=== PATIENT | male | born 1965 | race Caucasian/White ===

== ENCOUNTER 2019-07-20 11:48 | Emergency (ER) | payer MEDICARE, OTHER ==
[~2019-07-20] VITALS: Ht 177.8 cm; Wt 90.7 kg
[2019-07-20 12:00] VITALS: BP 137/85
[2019-07-20] MEDS ORDERED: RISPERIDONE2 MG ORAL (12:04)
[2019-07-20] MEDS ORDERED: PHENYTOIN SODI200 MG PO (12:04)
[2019-07-20] MEDS ORDERED: DIVALPROEX SOD500 MG PO (12:04)
[2019-07-20] MEDS ORDERED: VIMPAT200 MG PO (12:04)
[2019-07-20] MEDS ORDERED: BENAZEPRIL HCL10 MG ORAL (12:04)
--- NOTE | 2019-07-20 12:33 | Emergency Room Report ---
History of Present Illness General Chief Complaint: Seizure Source: Patient, Medical Record Present Illness HPI Disclaimer: Please note that this report is being documented using DRAGON technology. This can lead to erroneous entry secondary to incorrect interpretation by the dictating instrument. HPI: 54-year-old male with a history of epilepsy on Dilantin, developmental delay, cerebral palsy presents for evaluation of head injury after a seizure. The patient presents from his snf facility where he had a witnessed generalized tonic-clonic seizure lasting approximately 2 minutes and aborting spontaneously. He fell backwards and struck his head with a laceration over the occiput. The patient is returned to his neurologic baseline and has no complaints at this time. He denies headache, neck or back pain, changes in his vision, pain in his chest, palpitations, abdominal pain, vomiting or any other symptoms at this time. Does not appear that he has missed any medication doses according to his logbooks. PMH: Epilepsy, develop mental delay, cerebral palsy PSH: Cranial surgeries, unspecified Allergies: None reported Social Hx: None reported Allergies: Coded Allergies: No Known Allergies (Unverified , 07/20/19) Nursing Documentation-PMH Past Medical History: No History, Except For Hx Seizures: Yes - INTELLECTUAL DISABILITY, CEREBRAL PALSY, AUTISM Review of Systems All Other Systems: negative except mentioned in HPI Physical Exam Vital Signs Date Time Temp Pulse Resp B/P (MAP) Pulse Ox O2 Delivery O2 Flow Rate FiO2 07/20/19 11:53 98.1 97 18 150/95 (113) 95 Room Air General: Awake and alert, no acute distress HEENT: There is a 5 cm linear vertically oriented superficial laceration over the occiput. Hemostatic. No facial abrasions, lacerations or hematomas. No tenderness or soft tissue swelling over the facial bones. EOMI. There is a right-sided disconjugate gaze. PERRLA. No septal hematoma. No oral lacerations. Dentition is intact. No malocclusion Neck: Supple, trachea midline. Arrives without cervical collar Chest Wall: No tenderness, no deformity, no crepitus CV: RRR. S1 and S2 normal. No murmur appreciated Resp: Normal work of breathing. No cough, wheezing or crackles appreciated Abd: Soft, nontender, nondistended Skin: 5 cm superficial laceration over the occiput. Hemostatic. MSK: Normal tone and bulk. No obvious deformity. Moving all extremities. Ambulating without difficulty. Neuro: Awake and alert. Mentating appropriately. Sensation is intact to light touch over the dermatomes of the upper and lower extremities Spine: There is no tenderness, step-off or deformity in the cervical, thoracic or lumbosacral spine. Procedures Laceration/Wound Repair Laceration/Wound Repair : Consent: Verbal Wound Location: head Wound's Depth, Shape: superficial Wound Explored: clean Anesthesia: Lidocaine w/ Epi Volume Anesthetic (ccs): 10 Wound Debrided: None Wound Repaired With: nat Number of Sutures: 8 Sterile Dressing Applied?: Yes Medical Decision Making Diagnostic Impression: Primary Impression: Subtherapeutic phenytoin level Additional Impressions: Seizure Scalp laceration ER Course 54-year-old male presents for evaluation after head trauma secondary to a generalized tonic-clonic seizure witnessed by staff prior to arrival. He is returned to his neurologic baseline. Will check phenytoin levels, basic labs and CT scan of the head. The laceration will require closure with nat. Will update Tdap. Laboratory Tests Test 07/20/19 12:30 White Blood Count 7.2 K/UL (4.8-10.8) Red Blood Count 5.00 M/UL (4.70-6.10) Hemoglobin 15.3 G/DL (14.2-18.0) Hematocrit 45.2 % (42.0-52.0) Mean Corpuscular Volume 90 FL (80-99) Mean Corpuscular Hemoglobin 30.6 PG (27.0-31.0) Mean Corpuscular Hemoglobin Concent 33.9 G/DL (32.0-36.0) Red Cell Distribution Width 10.6 % (11.6-14.8) L Platelet Count 267 K/UL (150-450) Mean Platelet Volume 7.0 FL (6.5-10.1) Neutrophils (%) (Auto) 73.9 % (45.0-75.0) Lymphocytes (%) (Auto) 16.1 % (20.0-45.0) L Monocytes (%) (Auto) 8.3 % (1.0-10.0) Eosinophils (%) (Auto) 0.8 % (0.0-3.0) Basophils (%) (Auto) 0.9 % (0.0-2.0) Urine Color Pale yellow Urine Appearance Clear Urine pH 8 (4.5-8.0) Urine Specific Anza 1.010 (1.005-1.035) Urine Protein Negative (NEGATIVE) Urine Glucose (UA) Negative (NEGATIVE) Urine Ketones Negative (NEGATIVE) Urine Blood 1+ (NEGATIVE) H Urine Nitrite Negative (NEGATIVE) Urine Bilirubin Negative (NEGATIVE) Urine Urobilinogen Normal MG/DL (0.0-1.0) Urine Leukocyte Esterase Negative (NEGATIVE) Urine RBC 0-2 /HPF (0 - 0) H Urine WBC 0 /HPF (0 - 0) Urine Squamous Epithelial Cells Occasional /LPF Urine Bacteria Occasional /HPF (NONE) Sodium Level 137 MMOL/L (136-145) Potassium Level 4.4 MMOL/L (3.5-5.1) Chloride Level 101 MMOL/L (98-107) Carbon Dioxide Level 26 MMOL/L (21-32) Anion Gap 10 mmol/L (5-15) Blood Urea Nitrogen 10 mg/dL (7-18) Creatinine 0.8 MG/DL (0.55-1.30) Estimate Glomerular Filtration Rate > 60 mL/min (>60) Glucose Level 109 MG/DL (74-106) H Calcium Level 8.8 MG/DL (8.5-10.1) Urine Opiates Screen Negative (NEGATIVE) Urine Barbiturates Screen Negative (NEGATIVE) Phenytoin (Dilantin) Level 6.1 ug/mL (10-20) L Phencyclidine (PCP) Screen Negative (NEGATIVE) Urine Amphetamines Screen Negative (NEGATIVE) Urine Benzodiazepines Screen Negative (NEGATIVE) Urine Cocaine Screen Negative (NEGATIVE) Urine Marijuana (THC) Screen Negative (NEGATIVE) Serum Alcohol < 3 mg/dL EKG Diagnostic Results EKG Time: 12:09 Rate: normal Rhythm: NSR ST Segments: no acute changes Other Impression Sinus rhythm, normal axis, normal intervals, no ST segment changes Rhythm Strip Diag. Results Rhythm Strip Time: 12:09 EP Interpretation: yes Rate: 90s Rhythm: NSR, no PVC's, no ectopy Reevaluation Time: 14:05 Last Vital Signs Date Time Temp Pulse Resp B/P (MAP) Pulse Ox O2 Delivery O2 Flow Rate FiO2 07/20/19 11:53 98.1 97 18 150/95 (113) 95 Room Air Status: improved Reevaluation Impression No evidence of intercranial injury on CT scan. Laceration was closed with 8 nat. They will require removal in approximately 1 week. Dilantin level was found to be low and the patient was given a dose in the emergency department. Other labs are within normal limits. He will be discharged back to his assisted living facility. He can have his Dilantin levels rechecked by his PMD next week. Discussed reasons to return to the emergency department with his service liaison representative who is present at bedside. Patient be discharged. Disposition: HOME, SELF-CARE Condition: Stable John Denise MD Jul 20, 2019 12:33
--- NOTE | 2019-07-20 12:44 | NUR ---
ED Nurse Note: Pt walked into ED w caregiver. Pt had seizure around 1200 for about a minute. Pt a&ox4, pt denies pain, numbness, tingling. BS 103. seizure pads put on rail. Pt set on monitor. 97%RA, HR 70, 137/85.
[2019-07-20] MEDS ORDERED: Tetanus/Diptheria/Pertussis IM ONE (12:45)
[2019-07-20 12:48] LABS: APPEARANCE,URINE CLEAR; BILIRUBIN, URINE NEGATIVE (NEGATIVE); COLOR,URINE PALE YELLOW; GLUCOSE, URINE (UA) NEGATIVE (NEGATIVE); KETONES,URINE NEGATIVE (NEGATIVE); LEUKOCYTE ESTERASE ,URINE NEGATIVE (NEGATIVE); NITRITE,URINE NEGATIVE (NEGATIVE); PH,URINE 8 (4.5-8.0); PROTEIN,URINE NEGATIVE (NEGATIVE); UROBILINOGEN,URINE NORMAL MG/DL (0.0-1.0)
[2019-07-20 12:50] LABS: BASOPHILS % (AUTO) 0.9 % (0.0-2.0); EOSINOPHILS % (AUTO) 0.8 % (0.0-3.0); HEMATOCRIT 45.2 % (42.0-52.0); HEMOGLOBIN 15.3 G/DL (14.2-18.0); LYMPHOCYTES % (AUTO) 16.1 % (20.0-45.0); MEAN CORPUSCULAR VOLUME 90 FL (80-99); MONOCYTES % (AUTO) 8.3 % (1.0-10.0); NEUTROPHILS % (AUTO) 73.9 % (45.0-75.0); PLATELET COUNT 267 K/UL (150-450); RED CELL DISTRIBUTION WIDTH 10.6 % (11.6-14.8); WHITE BLOOD COUNT 7.2 K/UL (4.8-10.8)
[2019-07-20] MEDS ORDERED: Lidocaine 1% 10mg/ml/Epi 0.005mg/ml 30ml vial INJ ONE (13:00)
[2019-07-20 13:11] VITALS: BP 139/92
[2019-07-20 13:13] LABS: ANION GAP 10 mmol/L (5-15); BLOOD UREA NITROGEN 10 mg/dL (7-18); CALCIUM 8.8 MG/DL (8.5-10.1); CARBON DIOXIDE 26 MMOL/L (21-32); CHLORIDE 101 MMOL/L (98-107); CREATININE 0.8 MG/DL (0.55-1.30); POTASSIUM 4.4 MMOL/L (3.5-5.1); SODIUM 137 MMOL/L (136-145)
[2019-07-20] MEDS ORDERED: Phenytoin 500 MG in NS 110 ML IVPB ONE (13:30)
--- NOTE | 2019-07-20 14:05 | Diagnostic Imaging Report ---
Indications: Head injury after seizure Technique: Spiral acquisitions obtained through the brain. Angled axial and coronal 5 x 5 mm slices were reconstructed. Total dose length product 1583 mGycm. CTDI vol(s) 62 mGy. Dose reduction achieved using automated exposure control Comparison: None. Findings: There is left frontal encephalomalacia. This results in ex vacuo dilatation of the frontal horn of the left lateral ventricle. There is also a small focus of encephalomalacia in the posterior left temporal lobe and another in the left parasagittal high parietal lobe. No acute intracranial hemorrhage or edema. No mass effect nor midline shift. There is an old right frontal dionne hole and the right parietal dionne hole demonstrated visualized orbits are unremarkable. There is ethmoid sinus disease. Impression: Negative for acute to cranial bleed or mass effect Old left frontal, left parietal, and left posterior temporal encephalomalacia. Evidence of prior dionne holes-correlate with surgical history The CT scanner at [facility] is accredited by the [employer] and the scans are performed using protocols designed to limit radiation exposure to as low as reasonably achievable to attain images of sufficient resolution adequate for diagnostic evaluation.
[2019-07-20 14:22] VITALS: BP 135/85
[2019-07-20 14:30] VITALS: BP 130/85
--- NOTE | 2019-07-20 14:30 | NUR ---
ER DISCHARGE NOTE: Patient is cleared to be discharged per ERMD, pt is aox4, on room air, with stable vital signs. pt's caregiverwas given dc instructions he was able to verbalize understanding, pt id band and iv site removed without complications. pt is able to ambulate with steady gait. pt took all belongings.
--- NOTE | 2019-07-28 12:44 | Cardiology Report ---
APPROVED REPORT EKG Measurement Heart [id number] Normal sinus rhythm Normal ECG
== END 2019-07-20 14:31 | disposition home or self-care (01) ==
LOC: EMR 13:20
DX: S01.01XA Laceration without foreign body of scalp, initial encounter (principal); R89.2 Abnormal level of other drugs, medicaments and biological substances in specimens from other organs, systems and tissues; G40.409 Other generalized epilepsy and epileptic syndromes, not intractable, without status epilepticus; G80.9 Cerebral palsy, unspecified; F81.9 Developmental disorder of scholastic skills, unspecified; F84.0 Autistic disorder; W01.10XA Fall on same level from slipping, tripping and stumbling with subsequent striking against unspecified object, initial encounter; Y93.89 Activity, other specified; Y92.129 Unspecified place in nursing home as the place of occurrence of the external cause; Z23 Encounter for immunization
CPT/HCPCS: 12002; 36415; 70450; 80048; 80185; 80307; 81003; 85025; 90471; 90715; 93005; 96365; 99284; G0480; J1165